=== PATIENT | male | born 1950 | race African-American/Black ===

== ENCOUNTER 2017-02-06 11:20 | Emergency (ER) | payer OTHER ==
[2017-02-06] VITALS (7 sets, daily range): BP systolic 118–183; BP diastolic 68–104; PULSE 58–94; RESP 16–24; TEMP 98; O2SAT 95–99
[~2017-02-06] VITALS: Ht 175.3 cm; Wt 70.0 kg
[~2017-02-06 11:20] MED LIST: LAMO100; SERT100
[2017-02-06] MEDS ORDERED: SODIUM CHLOR 0.9% 1000 ML INJ 1,000 ML IV ONE (11:30)
[2017-02-06] MEDS ORDERED: SODIUM CHLORIDE 0.9% FLUSH 10 ML FLUSH IVF PRN (11:30)
[2017-02-06] MEDS ORDERED: ONDANSETRON HCL 4 MG/2 ML VIAL IV PUSH ONE (11:30)
--- NOTE | 2017-02-06 11:40 | PD ---
HPI . Vomiting and diarrhea Chief Complaint: GI Complaint Time Seen by Provider: 11:29 Travel History International Travel<30 days: No Contact w/Intl Traveler<30days: No Traveled to known affect area: No History of Present Illness HPI This patient presents with a chief complaint of vomiting and diarrhea. Onset was at 2 AM. Symptoms have been continuous. He is now complaining with diffuse abdominal pain which he believes is soreness secondary to vomiting. He rates the pain 7/10. He describes his vomitus as now bilious. It started as food. His diarrhea is brown and watery. He has had no noted fever. He has had no known exposures. His vomiting is exacerbated by trying to drink water. No relieving factor. PFSH Past Medical History Hx Anticoagulant Therapy: No Arthritis: Yes Anxiety: Yes Depression: Yes Cardiovascular Problems: Yes (HTN) Diabetes: No Hypertension: Yes Social History Alcohol Use: No Tobacco Use: Yes (4-5 CIGS DAILY) Allergies-Medications (Allergen,Severity, Reaction): Coded Allergies: trazodone (Unverified Allergy, Unknown, 02/06/17) Reported Meds & Prescriptions Reported Meds & Active Scripts Active Reported Hydrochlorothiazide 25 Mg Tab 25 Mg PO BID Zoloft (Sertraline HCl) 100 Mg Tab 100 Mg PO DAILY Lamictal (Lamotrigine) 100 Mg Tab 100 Mg PO DAILY Review of Systems Except as stated in HPI: all other systems reviewed are Neg General / Constitutional: No: Fever, Chills Cardiovascular: No: Chest Pain or Discomfort Respiratory: No: Shortness of Breath Gastrointestinal: Positive: Nausea, Vomiting, Diarrhea, Abdominal Pain Genitourinary: No: Urgency, Frequency, Dysuria Physical Exam Narrative GENERAL: Awake and alert. SKIN: warm/dry. Good color and turgor. HEAD: Normocephalic. Atraumatic. EYES: Pupils equal and round. No scleral icterus. No injection or drainage. ENT: No nasal bleeding or discharge. Mucous membranes pink and moist. NECK: Trachea midline. Full range of motion without pain.. CARDIOVASCULAR: Regular rate and rhythm. Heart sounds are normal. RESPIRATORY: No accessory muscle use. Clear to auscultation. Breath sounds equal bilaterally. GASTROINTESTINAL: Abdomen soft. Nontender. Bowel sounds present. Nondistended. MUSCULOSKELETAL: No obvious deformities. NEUROLOGICAL: Awake and alert. No obvious cranial nerve deficits. Motor grossly within normal limits. Normal speech. PSYCHIATRIC: Appropriate mood and affect; insight and judgment normal. Data Data Last Documented VS Vital Signs Date Time Temp Pulse Resp B/P (MAP) Pulse Ox O2 Delivery O2 Flow Rate FiO2 02/06/17 14:35 94 20 131/78 (95) 95 Room Air 02/06/17 11:30 98.0 Orders Orders Iv Access Insert/Monitor (02/06/17 11:30) Ondansetron Inj (Zofran Inj) (02/06/17 11:30) Sodium Chlor 0.9% 1000 Ml Inj (Ns 1000 M (02/06/17 11:30) Sodium Chloride 0.9% Flush (Ns Flush) (02/06/17 11:30) Complete Blood Count With Diff (02/06/17 11:33) Comprehensive Metabolic Panel (02/06/17 11:33) Lipase (02/06/17 11:33) Lactic Acid (02/06/17 11:33) Morphine Inj (Morphine Inj) (02/06/17 11:45) Famotidine Inj (Pepcid Inj) (02/06/17 11:45) Blood Culture (02/06/17 12:27) Sodium Chlor 0.9% 1000 Ml Inj (Ns 1000 M (02/06/17 12:30) Sodium Chlor 0.9% 1000 Ml Inj (Ns 1000 M (02/06/17 12:30) Lactic Acid (02/06/17 14:30) Urinalysis - C+S If Indicated (02/06/17 12:29) Ct Abd/Pel W Iv Contrast(Rout) (02/06/17 12:34) Morphine Inj (Morphine Inj) (02/06/17 12:45) Iohexol 350 Inj (Omnipaque 350 Inj) (02/06/17 13:30) Labs Laboratory Tests Test 02/06/17 11:45 02/06/17 13:25 02/06/17 14:25 White Blood Count 11.3 TH/MM3 Red Blood Count 5.61 MIL/MM3 Hemoglobin 15.9 GM/DL Hematocrit 48.7 % Mean Corpuscular Volume 86.9 FL Mean Corpuscular Hemoglobin 28.3 PG Mean Corpuscular Hemoglobin Concent 32.6 % Red Cell Distribution Width 13.5 % Platelet Count 255 TH/MM3 Mean Platelet Volume 8.3 FL Neutrophils (%) (Auto) 87.6 % Lymphocytes (%) (Auto) 5.6 % Monocytes (%) (Auto) 4.3 % Eosinophils (%) (Auto) 0.1 % Basophils (%) (Auto) 2.4 % Neutrophils # (Auto) 9.9 TH/MM3 Lymphocytes # (Auto) 0.6 TH/MM3 Monocytes # (Auto) 0.5 TH/MM3 Eosinophils # (Auto) 0.0 TH/MM3 Basophils # (Auto) 0.3 TH/MM3 CBC Comment DIFF FINAL Differential Comment Blood Urea Nitrogen 9 MG/DL Creatinine 1.20 MG/DL Random Glucose 146 MG/DL Total Protein 7.8 GM/DL Albumin 3.8 GM/DL Calcium Level 9.4 MG/DL Alkaline Phosphatase 74 U/L Aspartate Amino Transf (AST/SGOT) 17 U/L Alanine Aminotransferase (ALT/SGPT) 23 U/L Total Bilirubin 0.5 MG/DL Sodium Level 138 MEQ/L Potassium Level 3.8 MEQ/L Chloride Level 104 MEQ/L Carbon Dioxide Level 21.7 MEQ/L Anion Gap 12 MEQ/L Estimat Glomerular Filtration Rate 74 ML/MIN Lactic Acid Level 5.2 mmol/L 3.3 mmol/L Lipase 101 U/L Urine Collection Type CLEAN CATCH Urine Color STRAW Urine Turbidity CLEAR Urine pH 8.0 Urine Specific [place] 1.014 Urine Protein NEG mg/dL Urine Glucose (UA) NEG mg/dL Urine Ketones 15 mg/dL Urine Occult Blood TRACE Urine Nitrite NEG Urine Bilirubin NEG Urine Leukocyte Esterase NEG Urine RBC 0-3 /hpf Urine WBC 0-2 /hpf Urine Squamous Epithelial Cells 0-3 /hpf Microscopic Urinalysis Comment CULT NOT INDICATED MDM Medical Decision Making Medical Screen Exam Complete: Yes Emergency Medical Condition: Yes Differential Diagnosis Differential diagnosis includes but is not limited to viral gastritis, food poisoning, pancreatitis, pneumonia, hepatitis, acute coronary syndrome, Narrative Course This patient presents with the acute onset of nausea, vomiting and diarrhea. He probably has a simple viral gastroenteritis. He treated with IV fluids. I have ordered morphine for his pain and Zofran for his vomiting. Routine labs have been ordered. The nurse has subsequently learned that the patient has a recent diagnosis of prostate cancer. He is not yet undergoing any treatment for this. CBC & BMP Diagram 02/06/17 11:45 Total Protein 7.8, Albumin 3.8, Calcium Level 9.4, Alkaline Phosphatase 74, Aspartate Amino Transf (AST/SGOT) 17, Alanine Aminotransferase (ALT/SGPT) 23, Total Bilirubin 0.5 LA 5.2 I have subsequently ordered 2 more liters of fluid, blood cultures, CT of the abdomen and pelvis and a repeat lactic acid to be done following the additional fluid. Last Impressions Abdomen/Pelvis CT 02/06/17 1234 Signed Impressions: Service Date/Time: Monday, February 06, 2017 13:25 - CONCLUSION: 1. Isolated focal loop of proximal jejunum which is borderline enlarged measuring up to 3.3 cm. The remainder of the bowel is grossly unremarkable. Therefore, the finding is nonspecific. Developing small bowel process such as enteritis or ileus is unlikely but not entirely excluded. 2. Cholelithiasis. 3. Normal appendix. 4. Multiple renal cysts with the largest measuring 6.6 cm in the superior pole of the right kidney. Stephen Grimm MD UA is negative for infection. The patient is feeling markedly better following IV fluids. His color is much improved. He looks very comfortable. Repeat LA 3.3. Clinically, he looks well. He will be discharged home. Sepsis Criteria SIRS Criteria (2 or more): RR > 20 or PaCO2 < 32 Severe Sepsis (+one): Lactate >2 Diagnosis Primary Impression: Gastroenteritis Additional Impressions: Dehydration Lactic acidosis Patient Instructions: Gastroenteritis (DC), General Instructions Scripts Ondansetron (Zofran) 4 Mg Tab 4 MG PO Q6HR Y for NAUSEA OR VOMITING, #10 TAB 0 Refills Prov: Marce Concepcion MD 02/06/17 Disposition: 01 DISCHARGE HOME Condition: Stable Marce Concepcion MD Feb 06, 2017 11:39
[2017-02-06] MEDS ORDERED: MORPHINE SULFATE 4 MG/ML INJ IV PUSH ONE (11:45)
[2017-02-06] MEDS ORDERED: FAMOTIDINE 20 MG/2 ML VIAL IV PUSH ONE (11:45)
[2017-02-06] MEDS ORDERED: ZOLO100T PO (11:53)
[2017-02-06] MEDS ORDERED: HYDR25TA5 PO (11:53)
[2017-02-06] MEDS ORDERED: LAMO100 PO (11:53)
[2017-02-06 12:00] LABS: CHLORIDE 104 MEQ/L (98-107); SODIUM (NA) 138 MEQ/L (136-145)
[2017-02-06 12:03] LABS: CALCIUM 9.4 MG/DL (8.5-10.1)
[2017-02-06 12:04] LABS: ALBUMIN 3.8 GM/DL (3.4-5.0); BICARBONATE 21.7 MEQ/L (21.0-32.0); BLOOD UREA NITROGEN 9 MG/DL (7-18); GLUCOSE,RANDOM 146 MG/DL (74-106); LIPASE 101 U/L (73-393)
[2017-02-06 12:07] LABS: ALT (GPT) 23 U/L (12-78); AST (GOT) 17 U/L (15-37); GLOMERULAR FILTRATION RATE 74 ML/MIN (>89)
[2017-02-06 12:08] LABS: TOTAL BILIRUBIN ADULT 0.5 MG/DL (0.2-1.0); TOTAL PROTEIN 7.8 GM/DL (6.4-8.2)
[2017-02-06 12:10] LABS: ALKALINE PHOSPHATASE 74 U/L (45-117)
[2017-02-06 12:19] LABS: AUTOMATED NEUTROPHIL # 9.9 TH/MM3 (1.8-7.7); BASOPHIL # 0.3 TH/MM3 (0-0.2); BASOPHIL % 2.4 % (0.0-2.0); EOSINOPHIL % 0.1 % (0.0-4.0); HEMATOCRIT 48.7 % (39.0-51.0); HEMOGLOBIN 15.9 GM/DL (13.0-17.0); LYMPH % 5.6 % (9.0-44.0); LYMPHOCYTE # 0.6 TH/MM3 (1.0-4.8); MEAN CELL VOLUME 86.9 FL (80.0-100.0); MEAN CORPUSCULAR HEMOGLOBIN 28.3 PG (27.0-34.0); MEAN CORPUSCULAR HGB CONC 32.6 % (32.0-36.0); MEAN PLATELET VOLUME 8.3 FL (7.0-11.0); MONO % 4.3 % (0.0-8.0); MONOCYTE # 0.5 TH/MM3 (0-0.9); NEUT % 87.6 % (16.0-70.0); PLATELET COUNT 255 TH/MM3 (150-450); RED BLOOD COUNT 5.61 MIL/MM3 (4.50-5.90); RED CELL DISTRIBUTION WIDTH 13.5 % (11.6-17.2); WHITE BLOOD COUNT 11.3 TH/MM3 (4.0-11.0)
[2017-02-06] MEDS: SODIUM CHLOR 0.9% 1000 ML INJ 1,000 ML IV SCH ×3 (12:35→12:37)
[2017-02-06] MEDS ORDERED: MORPHINE SULFATE 4 MG/ML INJ IV ONE (12:45)
[2017-02-06] MEDS ORDERED: IOHEXOL 350 MG/ML 10 ML VIAL (for RAD DIAG) IVCONTRAST ONE (13:30)
[2017-02-06 13:39] LABS: BILIRUBIN, URINE NEG (NEG); GLUCOSE,URINE NEG (NEG); KETONE, URINE 15 mg/dL (NEG); NITRITE,URINE NEG (NEG); URINE LEUKOCYTE ESTERASE NEG (NEG)
[2017-02-06 13:44] LABS: BLOOD, URINE TRACE (NEG)
[2017-02-06 13:45] LABS: RBC, URINE 0-3 /hpf (0-3); SQUAMOUS EPITHELIAL CELL URINE 0-3 /hpf (0-5); URINE COLOR STRAW (YELLW/STRAW); WBC, URINE 0-2 /hpf (0-5)
--- NOTE | 2017-02-06 13:49 | RADRPT ---
EXAM DATE/TIME: 02/06/2017 13:25 [facility] COMPARISON: No previous studies available for comparison. INDICATIONS : Diffuse abdominal pain with nausea and vomiting. IV CONTRAST: 95 cc Omnipaque 350 (iohexol) IV ORAL CONTRAST: No oral contrast ingested. RADIATION DOSE: 7.01 CTDIvol (mGy) MEDICAL HISTORY : Hypertension. Prostate cancer. SURGICAL HISTORY : None. ENCOUNTER: Initial ACUITY: 1 day PAIN SCALE: 5/10 LOCATION: abdomen TECHNIQUE: Volumetric scanning of the abdomen and pelvis was performed. Using automated exposure control and ad justment of the mA and/or kV according to patient size, radiation dose was kept as low as reasonably achievable to obtain optimal diagnostic quality images. DICOM format image data is available electro nically for review and comparison. FINDINGS: LOWER LUNGS: The visualized lower lungs are clear. LIVER: Subcentimeter hypodense lesions which are to small to fully characterize in segment 3 of the liver. T here is no dilation of the biliary tree. Layering calcified gallstones in the gallbladder which other jules appears unremarkable by CT. SPLEEN: Normal size without lesion. PANCREAS: Within normal limits. KIDNEYS: 6.6 x 6.6 cm simple fluid density cyst arising from the superior pole of the right kidney. 1.5 cm cys t in the posterior inferior pole of the right kidney. Additional subcentimeter hypodense bilateral cy stic lesions are too small to fully characterize. Calcifications in the central inferior pole of the right kidney are likely vascular. However, there is a punctate probable calyceal calculus in the righ t inferior pole. No evidence for hydronephrosis. ADRENAL GLANDS: Within normal limits. VASCULAR: There is no aortic aneurysm. BOWEL/MESENTERY: Isolated focal loop of proximal jejunum which is borderline enlarged measuring up to 3.3 cm. Otherwis e, bowel is grossly unremarkable without evidence for obstruction. Appendix is visualized and normal in appearance. No free air or pneumatosis. No drainable fluid collection. ABDOMINAL WALL: Within normal limits. RETROPERITONEUM: There is no lymphadenopathy. BLADDER: Mild diffuse bladder wall thickening. REPRODUCTIVE: Prostate is nonspecifically enlarged. INGUINAL: There is no lymphadenopathy or hernia. MUSCULOSKELETAL: Degenerative spondylosis of the lower lumbar spine most prominently at L5-S1. CONCLUSION: 1. Isolated focal loop of proximal jejunum which is borderline enlarged measuring up to 3.3 cm. The r emainder of the bowel is grossly unremarkable. Therefore, the finding is nonspecific. Developing smal l bowel process such as enteritis or ileus is unlikely but not entirely excluded. 2. Cholelithiasis. 3. Normal appendix. 4. Multiple renal cysts with the largest measuring 6.6 cm in the superior pole of the right kidney. Stephen Grimm MD on February 06, 2017 at 13:35 Board Certified Radiologist. This report was verified electronically.
[2017-02-06] MEDS ORDERED: ZOFR4TAB PO (15:01)
== END 2017-02-06 15:59 | disposition home or self-care (01) ==
LOC: PHED 11:20
DX: K52.9 Noninfective gastroenteritis and colitis, unspecified (principal); E87.2 Acidosis; E86.0 Dehydration; R10.84 Generalized abdominal pain; I10 Essential (primary) hypertension; Z72.0 Tobacco use; Z87.39 Personal history of other diseases of the musculoskeletal system and connective tissue; Z86.59 Personal history of other mental and behavioral disorders; Z86.79 Personal history of other diseases of the circulatory system
CPT/HCPCS: 74177; 80053; 81001; 83605; 83690; 85025; 87040; 96361; 96374; 96375; 96376; 99285; J2270; J2405; J7030; Q9967